=== PATIENT | female | born 1980 | race Caucasian/White ===

== ENCOUNTER → 2017-03-29 | Outpatient (CLI) | payer BC | END | disposition home or self-care (01) | LOC: SURG 14:28 | PROVIDERS: ATTEND Anesthesiology Pain Medicine | DX: M54.14 Radiculopathy, thoracic region (principal); M47.814 Spondylosis without myelopathy or radiculopathy, thoracic region; M54.16 Radiculopathy, lumbar region; M47.816 Spondylosis without myelopathy or radiculopathy, lumbar region; M54.12 Radiculopathy, cervical region | CPT/HCPCS: 99213 ==

== ENCOUNTER → 2018-07-23 | Outpatient (CLI) | payer BC ==
--- NOTE | 2018-07-24 08:11 | RAD ---
Pelvic ultrasound, 07/23/2018: HISTORY: Left lower quadrant pain Transabdominal and transvaginal scans were obtained. The uterus is within normal limits in size measuring 9.2 x 5.4 x 4.5 cm. There is an echogenic structure in the central uterine cavity compatible with an IUD. The uterus is otherwise unremarkable. The right ovary is of normal size. It contains 2 small simple cysts, the largest of which measures 2.1 cm. The left ovary was less clearly seen but shows no abnormality. The adnexal structures are otherwise unremarkable. A trace amount of free fluid is present in the pelvis. This amount of fluid can be on a physiologic basis. IMPRESSION: 1. An IUD is present centrally in the uterus. 2. Small right ovarian cysts. 3. Trace amount of free fluid in the pelvis. Electronically signed by: Zaki Frazier MD (07/24/2018 8:06 AM) [facility]
== END | disposition home or self-care (01) ==
LOC: RAD 16:09
PROVIDERS: ATTEND Family Medicine
DX: N83.291 Other ovarian cyst, right side (principal)
CPT/HCPCS: 76830; 76856